=== PATIENT | male | born 1970 | race Caucasian/White ===

== ENCOUNTER 2016-08-25 14:04 | Outpatient (CLI) | payer OTHER | END 2016-08-25 14:05 | disposition home or self-care (01) | DX: G47.33 Obstructive sleep apnea (adult) (pediatric) (principal) ==

== ENCOUNTER 2016-09-22 19:13 | Outpatient (CLI) | payer OTHER | END 2016-09-22 19:14 | disposition home or self-care (01) | DX: G47.33 Obstructive sleep apnea (adult) (pediatric) (principal); Z68.31 Body mass index [BMI] 31.0-31.9, adult ==

== ENCOUNTER 2016-11-03 14:06 | Outpatient (CLI) | payer OTHER | END 2016-11-03 14:07 | disposition home or self-care (01) | DX: G47.33 Obstructive sleep apnea (adult) (pediatric) (principal) ==

== ENCOUNTER 2016-12-17 13:41 | Outpatient (CLI) | payer OTHER | END 2016-12-17 13:42 | disposition home or self-care (01) | LOC: SC 13:41 | PROVIDERS: ATTEND Nurse Practitioner Family | DX: G47.33 Obstructive sleep apnea (adult) (pediatric) (principal); G47.00 Insomnia, unspecified | CPT/HCPCS: 99212; 99214 ==

== ENCOUNTER 2016-12-27 19:57 | Emergency (ER) | payer OTHER ==
[2016-12-27] MEDS ORDERED: KETOROLAC 60 MG/2 ML VIAL IVP STA (20:04)
[2016-12-27] MEDS ORDERED: ONDANSETRON 4 MG/2 ML VIAL IVP STA (20:05)
[2016-12-27] MEDS ORDERED: SODIUM CHLORIDE 0.9% 1,000 ML IV ONE ×2 (20:05→21:34)
[2016-12-27] MEDS ORDERED: KETOROLAC 30 MG/ML VIAL ONE (20:07)
[2016-12-27] MEDS ORDERED: ONDANSETRON 4 MG/2 ML VIAL ONE (20:07)
[2016-12-27] MEDS ORDERED: MORPHINE 2 MG/ML SYRINGE IVP STA ×2 (20:36→22:45)
[2016-12-27] MEDS ORDERED: MORPHINE 2 MG/ML SYRINGE ONE ×2 (20:36→22:45)
--- NOTE | 2016-12-27 20:45 | ED Physician Documentation ---
PD HPI ABD PAIN - Stated complaint Stated Complaint: AB PX - Chief complaint Chief Complaint: Abd Pain - History obtained from History obtained from: Patient, Family - History of Present Illness Timing - onset: Yesterday Timing - details: Abrupt onset, Still present Quality: Aching, Sharp Location: LLQ Radiation: Other (left groin) Associated symptoms: Nausea, Vomiting, Hematuria. No: Fever, Hematemesis, Diarrhea, Constipation Similar symptoms before: Work up / diagnostics, Treatment, Follow up Recently seen: Not recently seen - Additional information Additional information: Patient is a 46 year old female with a history of renal stones, with the last sone about 6 months ago who is presenting to the emergency department for left lower quadrant pain and hematuria. Patient states that he has blood in his urine the last few days and assumed he was passing a stone. he thought that he would be able to pass it on his own but his symptoms kept getting progressively worse so he came in for evaluation. patient states that he also started vomiting this evening. Review of Systems Constitutional: denies: Fever, Chills Ears: denies: Loss of hearing, Ear pain Nose: denies: Rhinorrhea / runny nose, Congestion Throat: denies: Sore throat Cardiac: denies: Chest pain / pressure Respiratory: denies: Dyspnea, Cough GI: reports: Abdominal Pain, Nausea, Vomiting : reports: Hematuria. denies: Dysuria, Frequency Skin: denies: Rash, Lesions Musculoskeletal: denies: Neck pain, Back pain, Extremity pain Neurologic: denies: Generalized weakness, Focal weakness, Numbness Immunocompromised: denies: Immunocompromised PD PAST MEDICAL HISTORY - Past Medical History Past Medical History: Yes Cardiovascular: Hypertension Respiratory: Sleep apnea - Past Surgical History Past Surgical History: No - Present Medications Home Medications: Ambulatory Orders Medication Instructions Recorded Confirmed Hydrocodone/Acetaminophen 1 - 2 each PO Q6H PRN #10 tablet 12/27/16 [Hydrocodon-Acetaminophen 5-325] Lisinopril 1 tab PO DAILY 12/27/16 12/27/16 Ondansetron Odt [Zofran] 4 mg TL Q6H PRN #14 tablet 12/27/16 Tamsulosin [Flomax] 0.4 mg PO DAILY #10 capsule 12/27/16 - Allergies Allergies/Adverse Reactions: Allergies Allergy/AdvReac Type Severity Reaction Status Date / Time No Known Drug Allergies Allergy Verified 12/27/16 20:01 - Social History Does the pt smoke?: No Smoking Status: Never smoker Does the pt drink ETOH?: Yes Does the pt have substance abuse?: No - Immunizations Immunizations are current?: Yes PD ED PE NORMAL - Vitals Vital signs reviewed: Yes - General General: Alert and oriented X 3, Well developed/nourished - HEENT HEENT: Atraumatic, PERRL - Neck Neck: Supple, no meningeal sign - Cardiac Cardiac: RRR, No murmur - Respiratory Respiratory: No respiratory distress, Clear bilaterally - Abdomen Abdomen: Soft, Non tender, Non distended - Derm Derm: Normal color, Warm and dry, No rash - Extremities Extremities: No deformity, No tenderness to palpate - Neuro Neuro: Alert and oriented X 3, No motor deficit, No sensory deficit, Normal speech - Psych Psych: Normal mood, Normal affect PD ED PE EXPANDED - General General: Alert, In Pain - HEENT HEENT: Dry mucous membranes - Male Male : Normal Exam, Testes descended yoni. No: Testicular Mass, Tenderness Results - Vitals Vitals: Vital Signs - 24 hr 12/27/16 20:03 Temperature 36.6 C Heart Rate 47 L Respiratory 20 Rate Blood Pressure 152/72 H O2 Saturation 100 Oxygen O2 Source Room air - Rads (name of study) ct abdomen and pelvis Radiology: Final report received (cluster of stones in left distal ureter, 3.8mm max diameter) PD MEDICAL DECISION MAKING - ED course Complexity details: reviewed old records, reviewed results, re-evaluated patient , considered differential, d/w patient, d/w family ED course: Patient was seen and examined at bedside. Patient was in pain, nauseated and vomiting. IV access was gained. Patient was treated with toradol, zofran and IV fluids. Upon re-evaluation patient was still in pain and treated with 4mg of morphine. Patient was sent for imaging. When patient returned the results were reviewed. Patient was found to have 3 stones, the largest 3.8mm. Patient' s urine was collected and showed blood but no signs of infection. Patient required no further work up at this time and was stable for discharge with outpatient follow up. Departure - Departure Disposition: 01 Home, Self Care Clinical Impression: Kidney stones Condition: Good Instructions: Kidney Stones Follow-Up: Rabia Da Silva MD [Primary Care Provider] - Prescriptions: Tamsulosin [Flomax] 0.4 mg PO DAILY #10 capsule Hydrocodone/Acetaminophen [Hydrocodon-Acetaminophen 5-325] 1 - 2 each PO Q6H PRN #10 tablet PRN Reason: pain Ondansetron Odt [Zofran] 4 mg TL Q6H PRN #14 tablet PRN Reason: Nausea / Vomiting Comments: Your symptoms today were being caused by kidney stones. The largest is 3.8mm so it has greater than 90% chance of passing. It is important that you stay well hydrated with plenty of water. You can take motrin or tylenol as needed for pain and can take percocet for breakthrough pain. You should not take it with any other sedatives, including alcohol. You cannot drive or operate heavy machinery while taking it. You should follow up with your urologist. You may return to the emergency department at any time for new, worsening or uncontrollable symptoms.
--- NOTE | 2016-12-27 21:19 | CT Preliminary Report ---
Exam: CT Abdomen/Pelvis W/O IMPRESSION: 1. Mild left hydroureteronephrosis due to a cluster of stones within the left distal ureter, just dis kel to the left common iliac bifurcation. Each measure up to 3.8 mm in maximal diameter. 2. Single incipient left mid kidney stone. 3. No right-sided kidney stone visualized. No right hydronephrosis. 4. Appendix is normal. [facility] SITE ID[id number]
--- NOTE | 2016-12-27 21:22 | CT Report ---
EXAM: CT ABDOMEN AND PELVIS (CT KUB) EXAM DATE: 12/27/2016 08:56 PM. CLINICAL HISTORY: History of flank pain, vomiting. COMPARISONS: None. TECHNIQUE: Routine axial helical CT imaging was performed through the abdomen and pelvis without IV c ontrast. Reconstructions: Coronal and sagittal. In accordance with CT protocol optimization, one or more of the following dose reduction techniques w ere utilized for this exam: automated exposure control, adjustment of mA and/or KV based on patient s ize, or use of iterative reconstructive technique. FINDINGS: Right Kidney/Ureter: No stones. No hydronephrosis or hydroureter. No definite renal mass within the c onfines of a non-contrast exam. Left Kidney/Ureter: There is an incipient left mid kidney stone. Mild left hydroureteronephrosis is n oted due to an obstructing cluster of stones within the left distal ureter, at the level just below t he common iliac bifurcation. These measure 3.8 and 2.7 mm in maximal diameter (image 54 series 5). No definite renal mass within the confines of a non-contrast exam. Abdominal Solid Organs: Abdominal parenchymal organs are without significant abnormality within the c onfines of a noncontrast exam. Bowel: No evidence of bowel obstruction. Appendix: Normal. Lymph Nodes: No definite pathologic lymphadenopathy. Fluid: No significant ascites. Vasculature: Normal caliber aorta. Pelvis: No bladder stones. Visualized pelvic organs are without significant abnormality within the co nfines of a noncontrast exam. Bones: No definite suspicious bony lesions demonstrated. Lower Chest: No significant lung base consolidation or effusion. IMPRESSION: 1. Mild left hydroureteronephrosis due to a cluster of stones within the left distal ureter, just dis kel to the left common iliac bifurcation. Each measure up to 3.8 mm in maximal diameter. 2. Single incipient left mid kidney stone. 3. No right-sided kidney stone visualized. No right hydronephrosis. 4. Appendix is normal. [facility] Referring Provider Line: [phone] SITE ID: [id number]
[2016-12-27 22:31] LABS: BILIRUBIN,URINE SMALL (NEGATIVE); UA w/ MICROSCOPIC CHARGE YES
[2016-12-27] MEDS ORDERED: ONDANSETRON ODT 4 MG Prepack 2 TL STA (22:36)
[2016-12-27] MEDS ORDERED: ONDANSETRON ODT 4 MG Prepack 2 TL ONE (22:45)
[2016-12-27 22:48] LABS: UR CULTURE IF IND NOT INDICATED; WBC,URINE 0-3 /HPF (0-3)
[2016-12-27 23:26] VITALS: BP 124/65
== END 2016-12-27 23:22 | disposition home or self-care (01) ==
LOC: ED 19:57
DX: N13.2 Hydronephrosis with renal and ureteral calculous obstruction (principal); I10 Essential (primary) hypertension
CPT/HCPCS: 36415; 74176; 81001; 81003; 87086; 96374; 96375; 96376; 99284; 99285

== ENCOUNTER 2017-03-25 13:35 | Outpatient (CLI) | payer OTHER | END 2017-03-25 13:36 | disposition home or self-care (01) | LOC: SC 13:35 | PROVIDERS: ATTEND Nurse Practitioner Family | DX: G47.33 Obstructive sleep apnea (adult) (pediatric) (principal); G47.00 Insomnia, unspecified | CPT/HCPCS: 99212; 99214 ==

== ENCOUNTER 2017-08-25 15:36 | Outpatient (CLI) | payer OTHER | END 2017-08-25 15:37 | disposition home or self-care (01) | LOC: SC 15:36 | PROVIDERS: ATTEND Nurse Practitioner Family | DX: G47.33 Obstructive sleep apnea (adult) (pediatric) (principal); G47.00 Insomnia, unspecified | CPT/HCPCS: 99212; 99214 ==

== ENCOUNTER 2019-04-12 15:38 | Outpatient (CLI) | payer OTHER ==
--- NOTE | 2019-04-12 16:32 | SLEEP CARE CONSULTATION ---
Information from patient questionnaire entered by Paige Benson. I have reviewed and concur with the information entered by Paige Benson. This document represents the service I personally performed and the decisions made by me, Susan Jackson, RN, MSN, [employer]. History of Present Illness Previous diagnosis: Moderate, Obstructive Sleep Apnea-Hypopnea Syndrome AHI: 15.9 Reason for CPAP/BiPAP follow up: annual Equipment type: CPAP Equipment obtained from: [facility] [employer] (patient having difficulty getting supplies despite repeated attempts in person and no return calls.) Mask style: Nasal (dreamwear) Mask brand: Respironics Backup mask available: Yes Last cushion change: months CPAP Compliance Data - Data Reviewed with Patient Average duration of nightly device use: 5.8 Compliance rate %: 67.2 (180 days) Current pressure setting (cmH2O): 6 Humidity settin Heated hose settin Average residual AHI: 2.8 Subjective Missed days of use due to: reports: other (sleeping on new property without electricity / extra work / falling asleep on couch ) Patient concerns: reports: nasal congestion (mild - not interferring with CPAP use. ). denies: aerophagia, mask discomfort, air blowing in eyes, mask leak noise, condensation in mask/hose, dry mouth, nose, throat, epistaxis Observed to snore while using device: No Current pressure setting perceived as: comfortable On therapy, patient: reports: awakening more refreshed, being more awake and alert during the day, more rested overall. 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 ), drowsiness while driving Initial [place] Sleepiness Scale score: 6 Current [place] Sleepiness Scale score: 5 Allergies and Home Medications Known drug allergies: No Home medication list reviewed: Yes Allergy and home medication list: Medication Name (generic/name brand) Strength & Dosage Advil Prn po intermittently Review of Systems Review of systems same as previous: No (Foot pain less with orthotics) Physical Exam Blood Pressure: 122/86 Cuff size: long Heart Rate: 56 O2 Saturation: 92 Height: 6 ft 3 in Weight (kg): 250 lb Body Mass Index: 31.2 BMI Classification: Class 1 Impression and Plan 1. Obstructive Sleep Apnea-Hypopnea Syndrome, moderate, with fair treatment compliance and good apnea control. On CPAP therapy, the patient has better sleep quality and is more rested overall. For times of insomnia with difficulty going to sleep after waking in middle of night. I discussed methods to return to sleep such as muscle relaxation and deep breathing and meditation with reference sheet given. For his supply concerns, I may not be able transfer to a new company until his compliance is better. Thus he is advised to use CPAP when he works on other property now that he has electricity. He is also advised to set a couch alarm for bedtime so he can get a full night sleep with CPAP. If unable to use CPAP, he is avoid supine sleep by pillow positioning. I will write a prescription for updating supplies and have public relations coordinator contact [employer] if any further supply problems. When discussed with public relations coordinator, it was discovered that [employer] cannot fill his supplies due to contract issues with [employer]. Thus I will make a [facility] prescription for transfer now in event a DME will accept current compliance. Otherwise, he will have to wait until his next follow up when compliance better. Patient's apnea severity and rationale for treatment to reduce apnea, improve sleep quality and reduce cardiovascular and cerebrovascular events was reviewed. I also reviewed the benefit of consistent device use of CPAP for hypertension. * Continue CPAP pressure at 6 cmH2O * Implement methods to improve CPAP use * Transfer of Care to new DME * Notify me if snoring with mask or feeling that the pressure is too much or too little * Attempt to lose weight * Return for follow up in 2 months, or sooner if concerns arise I spent 100% of this 30 minute visit face to face with the patient with greater than 50% of this was spent time counseling the patient and coordination of care.
[2019-04-12 16:33] VITALS: BP 122/86
== END 2019-04-12 15:39 | disposition home or self-care (01) ==
LOC: SC 15:38
PROVIDERS: ATTEND Nurse Practitioner Family
DX: G47.33 Obstructive sleep apnea (adult) (pediatric) (principal)
CPT/HCPCS: 99212; 99214

== ENCOUNTER 2020-04-01 17:00 | Emergency (ER) | payer OTHER ==
[2020-04-01 17:48] LABS: BASOPHILS % (AUTO) 0.4 %; EOSINOPHILS % (AUTO) 0.5 %; HGB - HEMOGLOBIN 15.5 g/dL (14.0-18.0); LYMPHOCYTES # (AUTO) 1.6 10^3/uL (1.5-3.5); LYMPHOCYTES % (AUTO) 19.9 %; MEAN CORPUSCULAR HEMOGLOBIN 31.1 pg (27.0-31.0); MEAN CORPUSCULAR HGB CONC 33.7 g/dL (32.0-36.0); MEAN CORPUSCULAR VOLUME 92.2 fL (80.0-94.0); MEAN PLATELET VOLUME 8.9 fL (7.4-11.4); MONOCYTES # (AUTO) 0.7 10^3/uL (0.0-1.0); MONOCYTES % (AUTO) 8.9 %; NEUTROPHILS # (AUTO) 5.5 10^3/uL (1.5-6.6); NEUTROPHILS % (AUTO) 69.8 %; PLT - PLATELET COUNT 326 10^3/uL (130-450); RED BLOOD COUNT 4.99 10^6/uL (4.70-6.10); RED CELL DISTRIBUTION WIDTH 12.4 % (12.0-15.0); WHITE BLOOD COUNT 7.9 x10^3/uL (4.8-10.8)
[2020-04-01 17:56] LABS: ALBUMIN 4.4 g/dL (3.2-5.5); ALBUMIN/GLOBULIN RATIO 1.2 (1.0-2.2); BILIRUBIN,TOTAL 0.7 mg/dL (0.2-1.0); CALCIUM 9.3 mg/dL (8.5-10.3); CREATININE 1.2 mg/dL (0.6-1.2)
[2020-04-01] MEDS ORDERED: cefTRIAXone 1 GM VIAL IM STA (18:58)
[2020-04-01] MEDS ORDERED: DOXYCYCLINE 100 MG TABLET PO STA (18:59)
[2020-04-01] MEDS ORDERED: LIDOCAINE 1% 2 ML VIAL MC ONE (18:59)
[2020-04-01] MEDS ORDERED: TETANUS/DIPHTHERIA/PERTUSSIS 0.5 ML SYRINGE IM ONE (18:59)
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
[2020-04-01 19:20] VITALS: BP 030/76
== END 2020-04-01 19:34 | disposition home or self-care (01) ==
LOC: ED 17:00
DX: L03.116 Cellulitis of left lower limb (principal); T24.012A Burn of unspecified degree of left thigh, initial encounter; V28.0XXA Motorcycle driver injured in noncollision transport accident in nontraffic accident, initial encounter; X19.XXXA Contact with other heat and hot substances, initial encounter; Z23 Encounter for immunization; I10 Essential (primary) hypertension
CPT/HCPCS: 36415; 80053; 83690; 85025; 87070; 87181; 87205; 90471; 90715; 96372; 99283; 99284; A9270

== ENCOUNTER 2020-05-29 15:16 | Outpatient (CLI) | payer OTHER ==
--- NOTE | 2020-05-29 15:49 | SLEEP CARE CONSULTATION ---
Information from patient questionnaire entered by Abe Goodrich. I have reviewed and concur with the information entered by Abe Goodrich. This document represents the service I personally performed and the decisions made by , Esther Toro ARNP. History of Present Illness Service Date and Time: 05/29/2020 1516 Previous diagnosis: Moderate, Obstructive Sleep Apnea-Hypopnea Syndrome AHI: 15.9 Reason for follow up: annual (Last seen 05/2019) Equipment type: CPAP Equipment obtained from: [facility] (getting supplies as needed) Mask style: Nasal (dreamwear) Mask brand: Respironics Backup mask available: Yes (old mask) Last cushion change: 3 weeks Year and Where: 2016 and 2017 [facility] Type of Sleep Study: Polysomnography HPI additional information: KINGS MICHELLE was diagnosed to have moderate, AHI 15.9, obstructive sleep apnea-hypopnea syndrome and returned today for CPAP therapy annual follow-up. CPAP Compliance Data - Data Reviewed with Patient Average duration of nightly device use: 5 h 15 min Compliance rate %: 75 Current pressure setting (cmH2O): 6 Humidity settin Heated hose settin Average residual AHI: 3.4 Average large leak: 40 sec Subjective Patient concerns: denies: aerophagia, mask discomfort, air blowing in eyes (at the begin), mask leak noise, condensation in mask/hose, nasal congestion, dry mouth, nose, throat, epistaxis, other Observed to snore while using device: No Current pressure setting perceived as: too high (at beginning of night, using ramp and this is fine; comfortable rest of night) On therapy, patient: reports: sleeping better, awakening more refreshed, being more awake and alert during the day, more rested overall. denies: drowsiness while driving Initial [place] Sleepiness Scale score: 6 (in 2016) Current [place] Sleepiness Scale score: 5 Allergies and Home Medications Drug allergies reviewed: Yes (NKDA) Home medication list reviewed: Yes (no changes) Review of Systems Review of systems same as previous: Yes (no changes) Physical Exam Heart Rate: 65 O2 Saturation: 98 Height: 6 ft 3 in Weight: 257 lb Body Mass Index: 32.1 BMI Classification: Obese Impression and Plan 1. Obstructive Sleep Apnea-Hypopnea Syndrome, moderate, with good treatment compliance and good apnea control. On CPAP therapy, the patient has better sleep quality and is more rested overall. He states that every once in a while the pressure feels a little high at the start of the night. He uses the ramp and is able to go to sleep without the pressure feeling too high the rest of the night. He does not want to change pressure, feels it is fine. Patient is averaging 5 hours 15 minutes nightly. He would like to get more sleep but is just not able to sleep more than just over 5 hours most nights. Patient's apnea severity and rationale for treatment to reduce apnea, improve sleep quality and reduce cardiovascular and cerebrovascular events was reviewed. I also reviewed the benefit of consistent device use of CPAP for hypertension. * Continue auto CPAP pressure at 6 cmH2O * Notify me if snoring with mask or feeling that the pressure is too much or too little * Attempt to lose weight * Call this office if any problems using CPAP * Return for follow up in 1 year, or sooner if concerns arise Counseling Topics: Spare mask, Weight loss health impact Visit Type: In Office Time Spent with Patient (minutes): 15 Provider Statement: I spent 100% of the Face to Face Visit with the patient with greater than 50% spent counseling the patient and coordination of care.
== END 2020-05-29 15:17 | disposition home or self-care (01) ==
LOC: SC 15:16
PROVIDERS: ATTEND Nurse Practitioner Family
DX: G47.33 Obstructive sleep apnea (adult) (pediatric) (principal); E66.9 Obesity, unspecified; Z68.32 Body mass index [BMI] 32.0-32.9, adult
CPT/HCPCS: 99212

== ENCOUNTER 2021-09-18 16:35 | Outpatient (CLI) | payer OTHER ==
--- NOTE | 2021-09-18 17:08 | SLEEP CARE CONSULTATION ---
Information from patient questionnaire entered by Theron Cunningham MA. I have reviewed and concur with the information entered by Theron Cunningham MA. This document represents the service I personally performed and the decisions made by , Esther Toro ARNP. History of Present Illness Service Date and Time: 09/18/2021 1635 Previous diagnosis: Moderate, Obstructive Sleep Apnea-Hypopnea Syndrome AHI: 15.9 Reason for follow up: annual (LAST SEEN 05/2020,) Equipment type: CPAP Equipment obtained from: Other ([facility]; confusion about getting supplies) Mask style: Nasal (dreamwear) Mask brand: Respironics Backup mask available: Yes (old mask) Last cushion change: less than a month Year and Where: 2015 and 2016 [facility] Type of Sleep Study: Polysomnography HPI additional information: GARRY MICHELLE was diagnosed to have moderate, AHI 15.9, obstructive sleep apnea-hypopnea syndrome and returned today for CPAP therapy annual follow-up. Sleep Study - Results Type of Sleep Study: Polysomnography Year and Where: 2015 and 2016 [facility] CPAP Compliance Data - Data Reviewed with Patient Average duration of nightly device use: 5 hours 13 minutes Compliance rate %: 76.7 Current pressure setting (cmH2O): 6 Average residual AHI: 3.7 Central apnea: 0.4 Obstructive apnea: 1.1 Subjective Missed days of use due to: reports: illness (went without due to Covid and getting cough when using CPAP) Patient concerns: denies: aerophagia, mask discomfort, air blowing in eyes, mask leak noise, condensation in mask/hose, nasal congestion, dry mouth, nose, throat, epistaxis, other Observed to snore while using device: No Current pressure setting perceived as: comfortable On therapy, patient: reports: sleeping better, awakening more refreshed, being more awake and alert during the day, more rested overall. denies: drowsiness while driving Initial [place] Sleepiness Scale score: 6 (in 2016) Current [place] Sleepiness Scale score: 2 Allergies and Home Medications Home medication list reviewed: Yes (no changes) Allergy and home medication list: Allergies No Known Drug Allergies Allergy (Verified 12/27/16 20:01) Review of Systems Review of systems same as previous: No (Covid infection with pneumonia Aug 16) Physical Exam Vital signs obtained and entered by: NICK HARRIS Blood Pressure: 88/66 (right) Cuff size: wrist Heart Rate: 72 O2 Saturation: 96 (paper mask) Height: 6 ft 3 in Weight: 255 lb Body Mass Index: 31.8 BMI Classification: Obese Impression and Plan 1. Obstructive Sleep Apnea-Hypopnea Syndrome, moderate, with good treatment compliance and good apnea control. On CPAP therapy, the patient has better sleep quality and is more rested overall. Garry has had some difficulty getting supplies from new DME and he would like to change companies. I will have my complaints coordinator inform of DME options. A DWO prescription will then be made. Patient advised to contact this office if further supply problems. Patient has a Dreamstation. I informed the patient that [employer] has a recall on several devices like the patients machine. Patient was encouraged to register their device online with [employer] for the recall to see if their device is affected. If their device is affected they should start a claim. Patient denies any black particles seen in machine or hoses, any unusual odors coming from device. Patient has not experienced any physical symptoms such as upper airway irritation, headache, skin or eye irritation, asthma, nausea/ vomiting, difficulty breathing or chest pain. If patient is not able to sleep due to waking up choking, gasping for air or other respiratory distress that they may decide to continue using it until it is either replaced or repaired. Since the patients current machine is at least 5 years old, the patient is opting to update their device with a device that is not on the recall. Patient voiced understanding and agreement with plan. Patient's apnea severity and rationale for treatment to reduce apnea, improve sleep quality and reduce cardiovascular and cerebrovascular events was reviewed. I also reviewed the benefit of consistent device use of CPAP for hypertension. Patient was encouraged to try to lose weight to improve his overall health and reduce apneas. * Continue auto CPAP pressure at 6 cmH2O * Update CPAP machine * Transfer DME * Notify me if snoring with mask or feeling that the pressure is too much or too little * Attempt to lose weight * Call this office if any problems using CPAP * Return for follow up one month after obtaining new device, or sooner if concerns arise Counseling Topics: Spare mask, Weight loss health impact Visit Type: In Office Time Spent with Patient (minutes): 22 Provider Statement: I spent 100% of the Face to Face Visit with the patient with greater than 50% spent counseling the patient and coordination of care.
[2021-09-18 17:10] VITALS: BP 88/66
== END 2021-09-18 16:36 | disposition home or self-care (01) ==
LOC: SC 16:35
PROVIDERS: ATTEND Nurse Practitioner Family
DX: G47.33 Obstructive sleep apnea (adult) (pediatric) (principal); E66.9 Obesity, unspecified; Z68.31 Body mass index [BMI] 31.0-31.9, adult
CPT/HCPCS: 99212; 99213

== ENCOUNTER 2021-10-04 21:47 | Emergency (ER) | payer OTHER ==
--- OUTSIDE RECORDS SUMMARY | 2021-10-04 22:29 | EXTERNAL MEDICAL SUMMARY RPT | Continuity of Care Document ---
:1970 Author Organization [facility] Address [address] [place] [address] Phone Allergies No information. Encounters No information. Medications No information. Problems date description facility [id number] Radiculopathy, cervical region [facility] Results No information.
--- NOTE | 2021-10-05 00:04 | ED Physician Documentation ---
PD HPI UPPER EXT INJURY - Stated complaint Stated Complaint: LT FINGER LAC/INJ - Chief complaint Chief Complaint: Laceration - History obtained from History obtained from: Patient - History of Present Illness Location: Left, Finger Type of injury: Laceration Where injury occurred: Home Timing - onset: Enter time (21:30), Today Timing - details: Abrupt onset Recently seen: Not recently seen - Additonal information Additional information: at approximately 9:30 PM tonight, patient sustained left pointer finger laceration while using a chisel. He is UTD on tetanus. He is right hand dominant. Review of Systems Skin: reports: Laceration (s) Neurologic: denies: Focal weakness, Numbness PD PAST MEDICAL HISTORY - Past Medical History Cardiovascular: Hypertension Respiratory: Sleep apnea - Past Surgical History Past Surgical History: No - Present Medications Home Medications: Ambulatory Orders Medication Instructions Recorded Confirmed Lisinopril 0.5 tab PO DAILY 12/27/16 10/05/21 - Allergies Allergies/Adverse Reactions: Allergies Allergy/AdvReac Type Severity Reaction Status Date / Time No Known Drug Allergies Allergy Verified 10/04/21 22:17 - Social History Does the pt smoke?: No Smoking Status: Never smoker Does the pt drink ETOH?: Yes Does the pt have substance abuse?: No - Immunizations Immunizations are current?: Yes PD ED PE NORMAL - Vitals Vital signs reviewed: Yes - General General: Alert and oriented X 3, No acute distress - Extremities Extremities: No tenderness to palpate, Other (left pointer finger: 1 cm laceration on flexor/palmar aspect over middline phalanx) - Neuro Neuro: No motor deficit (FROM flexion/extension of left pointer finger), No sensory deficit (LTS intact at tip of left pointer finger) Results - Vitals Vitals: Oxygen O2 Source Room air Procedures - Laceration (location) Finger left Palmar Length in cm: 1 Wound type: Linear, Into subcut fat, Clean Neurovascular status: Sensory intact, Motor intact, Vascular intact Tendon involvement: Tendon intact Anesthesia: Lidocaine 2% Wound preparation: Wound explored Skin layer closure: Nylon, Running Other: Patient tolerated well, No complications, Neurovascular intact, Dressing applied, Tetanus UTD PD MEDICAL DECISION MAKING - ED course Complexity details: considered differential, d/w patient Departure - Departure Disposition: 01 Home, Self Care Clinical Impression: Laceration Condition: Good Instructions: ED Laceration Ext Sutr Stap Tape Comments: Follow up with your primary care provider in 7-10 days for removal of the stitches Discharge Date/Time: 10/05/21 01:59
[2021-10-05] MEDS ORDERED: LIDOCAINE-MPF 1% 5 ML VIAL SUBQ STA (00:14)
[2021-10-05] MEDS ORDERED: BACITRACIN ZINC OINT 1 PACKET TOP STA (01:56)
[2021-10-05 03:15] VITALS: BP 142/91
== END 2021-10-05 01:59 | disposition home or self-care (01) ==
LOC: ED 21:47
DX: S61.211A Laceration without foreign body of left index finger without damage to nail, initial encounter (principal); W27.0XXA Contact with workbench tool, initial encounter; Y93.89 Activity, other specified; Y92.009 Unspecified place in unspecified non-institutional (private) residence as the place of occurrence of the external cause
CPT/HCPCS: 12001; 99281

== ENCOUNTER 2023-02-03 15:42 | Outpatient (CLI) | payer OTHER ==
--- NOTE | 2023-02-03 16:18 | Sleep Patient Instructions ---
Sleep Center Visit Summary - Patient Visit Information Reason for Visit: Annual visit for PAP therapy - Patient Instructions Additional Instructions: You will continue with CPAP therapy with pressure set at 6 cmH2O. A supply prescription will be updated with your DME. We encourage you to continue to try to lose weight. Please follow up with the sleep care office in 1 year. - Clinic Information Contact: [facility] [address] [place] [address] [email or web address] T: [phone]
--- NOTE | 2023-02-03 16:27 | SLEEP CARE CONSULTATION ---
Information from patient questionnaire entered by Lorraine Crain. I have reviewed and concur with the information entered by Lorraine Crain. This document represents the service I personally performed and the decisions made by me, Esther Toro ARNP. History of Present Illness Service Date and Time: 02/03/2023 1542 Previous diagnosis: Moderate, Obstructive Sleep Apnea-Hypopnea Syndrome AHI: 15.9 Reason for follow up: annual (LAST SEEN 08/2021) Equipment type: CPAP (Lexie; [place] CARD NEEDED) Equipment obtained from: Other ([facility]; getting supplies) Mask style: Nasal Mask brand: Respironics (Dreamwear) Backup mask available: Yes (old mask) Last cushion change: 1 month + Year and Where: 2015 and 2016 [facility] Type of Sleep Study: Polysomnography HPI additional information: GARRY MICHELLE was diagnosed to have moderate, AHI 15.9, obstructive sleep apnea-hypopnea syndrome and returned today for CPAP therapy annual follow-up. Sleep Study - Results Type of Sleep Study: Polysomnography Year and Where: 2015 and 2016 [facility] CPAP Compliance Data - Data Reviewed with Patient Average duration of nightly device use: 5 hours 43 minutes Compliance rate %: 85.9 (75/85 days used) Current pressure setting (cmH2O): 6 Average residual AHI: 0.8 Central apnea: 0.6 Average large leak: 0 minutes Compliance data discussion: He has a Transcend travel CPAP that he uses when he travels. Subjective Missed days of use due to: reports: travel (uses Transcend travel CPAP when travelling) Patient concerns: denies: aerophagia, mask discomfort, air blowing in eyes, mask leak noise, condensation in mask/hose, nasal congestion, dry mouth, nose, throat, epistaxis Observed to snore while using device: No Current pressure setting perceived as: comfortable On therapy, patient: reports: sleeping better, awakening more refreshed, being more awake and alert during the day, more rested overall. denies: drowsiness while driving Initial [place] Sleepiness Scale score: 6 (in 2016) Current [place] Sleepiness Scale score: 3 (02/03/23) Allergies and Home Medications Known drug allergies: No Drug allergies reviewed: Yes Home medication list reviewed: Yes (stopped Lisinopril) Allergy and home medication list: Allergies No Known Drug Allergies Allergy (Verified 02/02/23 14:14) Review of Systems Review of systems same as previous: Yes (no changes) Physical Exam Vital signs obtained and entered by: LORRAINE De Santiago MA Blood Pressure: 120/68 (LEFT ARM) Cuff size: regular Heart Rate: 64 O2 Saturation: 96 Height: 6 ft 4 in Weight: 255 lb 6.4 oz Body Mass Index: 31.1 BMI Classification: Obese Impression and Plan 1. Obstructive Sleep Apnea-Hypopnea Syndrome, moderate, with good treatment compliance and good apnea control. Patient has significant improvement of their sleep apnea and is satisfied with current CPAP therapy. On CPAP therapy, the patient has better sleep quality and is more rested overall. Patient denies problems with oral dryness, nasal congestion, epistaxis, skin irritation or aerophagia. 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 A letter will be drafted for him and copy given to patient. Patient's apnea severity and rationale for treatment to reduce apnea, improve sleep quality and reduce cardiovascular and cerebrovascular events was reviewed. I also reviewed the benefit of consistent device use of CPAP for hypertension. 2. Obesity, unspecified. Currently patients BMI is 31.1. Obesity increases the risk of apnea, CPAP pressure requirements and overall health risks especially cardiovascular and diabetes. Thus patient is advised to lose weight. * Continue CPAP pressure at 6 cmH2O * Update supply prescription * Letter on treatment compliance and efficacy for CDL renewal given to patient * Notify me if snoring with mask or feeling that the pressure is too much or too little * Attempt to lose weight * Call this office if any problems using CPAP * Return for follow up in 1 year, or sooner if concerns arise * Counseling Topics: Spare mask, Weight loss health impact Visit Type: In Office Time Spent with Patient (minutes): 25 Provider Statement: I spent 100% of the Face to Face Visit with the patient with greater than 50% spent counseling the patient and coordination of care.
[2023-02-03 17:04] VITALS: BP 120/68
== END 2023-02-03 15:43 | disposition home or self-care (01) ==
LOC: SC 15:42
PROVIDERS: ATTEND Nurse Practitioner Family
DX: G47.33 Obstructive sleep apnea (adult) (pediatric) (principal); E66.9 Obesity, unspecified; Z68.31 Body mass index [BMI] 31.0-31.9, adult
CPT/HCPCS: 99212; 99213

== ENCOUNTER 2023-11-25 00:43 | Emergency (ER) | payer OTHER ==
[2023-11-25 01:29] LABS: BASOPHILS % (AUTO) 0.3 %; EOSINOPHILS # (AUTO) 0.1 10^3/uL (0.0-0.7); EOSINOPHILS % (AUTO) 0.6 %; HCT - HEMATOCRIT 46.5 % (42.0-52.0); HGB - HEMOGLOBIN 15.8 g/dL (14.0-18.0); LYMPHOCYTES # (AUTO) 2.2 10^3/uL (1.5-3.5); LYMPHOCYTES % (AUTO) 17.8 %; MEAN CORPUSCULAR VOLUME 91.2 fL (80.0-94.0); MEAN PLATELET VOLUME 9.2 fL (7.4-11.4); MONOCYTES # (AUTO) 0.7 10^3/uL (0.0-1.0); MONOCYTES % (AUTO) 5.7 %; NEUTROPHILS # (AUTO) 9.4 10^3/uL (1.5-6.6); NEUTROPHILS % (AUTO) 75.2 %; PLT - PLATELET COUNT 269 10^3/uL (130-450); RED CELL DISTRIBUTION WIDTH 12.5 % (12.0-15.0); WHITE BLOOD COUNT 12.4 x10^3/uL (4.8-10.8)
[2023-11-25 01:44] LABS: ALBUMIN 4.9 g/dL (3.2-5.5); ALBUMIN/GLOBULIN RATIO 1.8 (1.0-2.2); BILIRUBIN,TOTAL 0.6 mg/dL (0.2-1.0); CALCIUM 9.9 mg/dL (8.5-10.3); CREATININE 1.1 mg/dL (0.6-1.3); POTASSIUM 3.7 mmol/L (3.5-4.5); TOTAL PROTEIN 7.6 g/dL (6.4-8.9)
[2023-11-25] MEDS: KETOROLAC 30 MG/ML VIAL IVP STA (02:02)
[2023-11-25] MEDS: ONDANSETRON 4 MG/2 ML VIAL IVP STA (02:02)
[2023-11-25] MEDS: HYDROmorphone 1 MG/ML CARPUJECT IVP STA (02:03)
--- NOTE | 2023-11-25 02:38 | ED Physician Documentation ---
PD HPI ABD PAIN - Stated complaint Stated Complaint: RT LOWER ABD X - Chief complaint Chief Complaint: Abd Pain - History obtained from History obtained from: Patient - Additional information Additional information: The patient comes to the emergency department chief complaint of right flank pain radiating to his right groin. He states this happened suddenly at around 1300 this afternoon and has intensified over the past couple of hours. He has a history of kidney stones and states this feels very much the same. He is also had some gross blood in his urine. He states he was feeling completely normal before 1300. He states that he keeps feeling the urge to urinate but when he tries nothing comes out. No fevers or chills. He does note that he becomes very nauseated when the waves of pain get strong. No other complaints at this time. PD PAST MEDICAL HISTORY - Past Medical History Past Medical History: Yes Cardiovascular: Hypertension Respiratory: Sleep apnea - Past Surgical History Past Surgical History: No - Present Medications Home Medications: Ambulatory Orders Medication Instructions Recorded Confirmed HYDROcod/ACETAM 5/325 [Beaumont 5/325] 1 - 2 tablet PO Q6H PRN #14 tablet 11/25/23 Lisinopril [Zestril] 10 mg PO DAILY 11/25/23 11/25/23 Ondansetron Odt [Zofran] 4 mg TL Q6H PRN #10 tablet 11/25/23 - Allergies Allergies/Adverse Reactions: Allergies Allergy/AdvReac Type Severity Reaction Status Date / Time No Known Drug Allergies Allergy Verified 11/25/23 01:12 - Social History Does the pt smoke?: No Smoking Status: Never smoker Does the pt drink ETOH?: Yes Does the pt have substance abuse?: No - Immunizations Immunizations are current?: Yes - POLST Patient has POLST: No PD ED PE NORMAL - Vitals Vital signs reviewed: Yes - General General: Alert and oriented X 3, Well developed/nourished, Other (Visibly un comfortable patient, pacing, writhing, crying out, and clutching his right flank.) - HEENT HEENT: Atraumatic, EOMI, Moist mucous membranes - Neck Neck: Supple, no meningeal sign - Cardiac Cardiac: RRR, No murmur - Respiratory Respiratory: No respiratory distress, Clear bilaterally - Abdomen Abdomen: Soft, Non tender, Non distended - Derm Derm: Normal color, Warm and dry, No rash - Extremities Extremities: No deformity, No edema - Neuro Neuro: Alert and oriented X 3, Other (Grossly intact) - Psych Psych: Normal mood, Normal affect Results - Vitals Vitals: Vital Signs - 24 hr 11/25/23 11/25/23 11/25/23 01:00 03:10 05:05 Temperature 36.5 C Heart Rate 65 58 L 62 Respiratory 20 16 16 Rate Blood Pressure 118/106 H 128/82 H O2 Saturation 96 95 98 Oxygen O2 Source Room air - Labs Labs: Laboratory Tests 11/25/23 11/25/23 01:21 01:21 WBC 12.4 H RBC 5.10 Hgb 15.8 Hct 46.5 MCV 91.2 MCH 31.0 MCHC 34.0 RDW 12.5 Plt Count 269 MPV 9.2 Neut # (Auto) 9.4 H Lymph # (Auto) 2.2 Wallace # (Auto) 0.7 Eos # (Auto) 0.1 Baso # (Auto) 0.0 Absolute Nucleated RBC 0.00 Nucleated RBC % 0.0 Sodium 139 Potassium 3.7 Chloride 103 Carbon Dioxide 26 Anion Gap 10.0 BUN 13 Creatinine 1.1 Estimated GFR (MDRD) 69 L Glucose 175 H Calcium 9.9 Total Bilirubin 0.6 AST 19 ALT 18 Alkaline Phosphatase 79 Total Protein 7.6 Albumin 4.9 Globulin 2.7 Albumin/Globulin Ratio 1.8 Lipase 14 - Rads (name of study) CT abdomen and pelvis no contrast Relevant Findings:: Final report received, See rad report (To 3 mm stone at right UVJ. Tiny stones in left kidney.) PD Medical Decision Making - ED course Complexity details: reviewed results, re-evaluated patient, considered differential, d/w patient, d/w family ED course: The patient was treated symptomatically with IV fluids, Dilaudid, Toradol, and Zofran, and worked up with labs and UA. He was ultimately sent for CT scan of the abdomen and pelvis as I did suspect another kidney stone. The patient's workup showed a mild white blood cell count elevation but otherwise unremarkable. His CT scan showed a 2 to 3 mm stone at the right UVJ. I reevaluated the patient was feeling much better after symptomatic intervention. We discussed that he has almost passed his kidney stone and that this is a very passable size. I encouraged him to drink plenty of fluids and have prescribed symptomatic management for home. We have discussed the need for follow-up and the usual indications for return. Departure - Departure Disposition: 01 Home, Self Care Clinical Impression: Kidney stone on right side Condition: Stable Instructions: ED Stone Renal W Colic Prescriptions: HYDROcod/ACETAM 5/325 [Beaumont 5/325] 1 - 2 tablet PO Q6H PRN #14 tablet PRN Reason: Pain Ondansetron Odt [Zofran] 4 mg TL Q6H PRN #10 tablet PRN Reason: Nausea / Vomiting Comments: Your labs, overall, look good. Your CT scan shows a 2 to 3 mm stone that is right at the border of your ureter and bladder and should pop through any time. We have given you prescriptions for nausea and pain medication and these have been electronically transmitted to the [facility] pharmacy in [place]. You have been given sedating medication in the emergency department tonight, so please do not drive for the next 6 hours. Forms: PCP List, Activity restrictions Discharge Date/Time: 11/25/23 05:06
[2023-11-25] MEDS: HYDROmorphone 0.5 MG/0.5 ML SYRINGE IVP STA (04:54)
[2023-11-25 05:12] VITALS: BP 128/82; O2SAT 98
--- NOTE | 2023-11-25 09:01 | CT Report ---
PROCEDURE: Abdomen/Pelvis WO INDICATIONS: R flank/groin pain TECHNIQUE: A CT scan of the abdomen and pelvis was performed without the use of intravenous contrast. Images we re recorded and evaluated at appropriate window settings. Reformats: coronal and sagittal. For radiat ion dose reduction, the following was used: automated exposure control, adjustment of mA and/or kV ac cording to patient size. COMPARISON: None. FINDINGS: Image quality: Diagnostic. Lower chest: Cardiac megaly. Dependent groundglass. Small hiatal hernia. Liver: No contour-deforming mass. Gallbladder and biliary tree: No radiopaque stones or wall thickening. No biliary dilation. Spleen: No splenomegaly. Pancreas: No pancreatic ductal dilation. Adrenals: No adrenal nodule. Kidneys and ureters: Obstructing 2 mm stone in the right UVJ, resulting in mild hydronephroureter. Pe rinephric fat stranding and perinephric fat stranding. Stomach, bowel and peritoneum: No bowel distension. No pathologic free fluid. Normal appendix. Lymph nodes: No central or retroperitoneal adenopathy. Vessels: No infrarenal aortic aneurysm. PELVIS Reproductive organs: Unremarkable. Bladder: No wall thickness, accounting for underdistention. Pelvic lymph nodes: No pelvic adenopathy by size criteria. Bones: No aggressive osseous abnormality. Other: No significant ventral or inguinal hernia. IMPRESSION: Obstructing 2 mm stone in the right UVJ, resulting in mild hydronephroureter. Findings are concordant with preliminary interpretation provided by [facility]. Reviewed by: Cleveland Clifford MD on 11/25/2023 9:00 AM PDT Approved by: Cleveland Clifford MD on 11/25/2023 9:00 AM PDT Station ID: [id number]
== END 2023-11-25 05:06 | disposition home or self-care (01) ==
LOC: ED 00:43
DX: N20.0 Calculus of kidney (principal); I10 Essential (primary) hypertension; Z87.442 Personal history of urinary calculi; Z79.899 Other long term (current) drug therapy
CPT/HCPCS: 36415; 74176; 80053; 83690; 85025; 96374; 96375; 96376; 99283; 99284; J1170